=== PATIENT | male | born 1980 | race Caucasian/White ===

== ENCOUNTER 2020-11-23 03:10 | Emergency (ER) | payer OTHER ==
[~2020-11-23] VITALS: Ht 175.3 cm; Wt 73.0 kg
--- NOTE | 2020-11-23 03:10 | NUR ---
PT YUKI BLS. TAKEN TO BED 8
[2020-11-23 03:11] VITALS: BP 111/75
--- NOTE | 2020-11-23 03:11 | NUR ---
40 YR OLD MALE BIBA FOR CC OF GENERALIZED WEAKNESS. PT IS AOX4. PT STATES GENERALIZED WEAKNESS X3DAYS. PT STATES STOPPED USING METH 3 DAYS AGO AND STATES GENERALIZED WEAKNESS STARTED AFTER. PT DENIES OTHER DRUG USE. PT STATES "PASSING OUT AND WAKING UP ON BATHROOM FLOOR". PT HAS NO SIGNS OF TRAUMA. PT DENIES OTHER MEDICAL COMPLAINTS. BED LOCKED IN LOWEST POSITION WITH 2 SIDE RAILS UP FOR SAFETY. HISTORY- NONE ALLERGIES- NONE
--- NOTE | 2020-11-23 03:26 | NUR ---
Dr. Hope examining patient.
[2020-11-23] MEDS ORDERED: NACL 0.9% 1,000 ML IV ONE (03:30)
--- NOTE | 2020-11-23 03:50 | NUR ---
PT WAS PROVIDED CRACKERS AND CARNBERRY JUICE. Addendum: 11/23/20 at 0354 by MEDOE PT WAS PROVIDED CRACKERS AND CRANBERRY JUICE.
--- NOTE | 2020-11-23 04:50 | NUR ---
PT FOUND ASLEEP IN SEMI-MAYS'S POSITION IN BED. PT HAS VISIBLE EQUAL RISE AND FALL UPON RESPIRATION. NO DISTRESS NOTED. BED LOCKED IN LOWEST POSITION WITH 2 SIDE RAILS UP FOR SAFETY.
[2020-11-23 05:12] VITALS: BP 109/69
--- NOTE | 2020-11-23 05:12 | NUR ---
Patient discharged with v/s stable. Written and verbal after care instructions given and explained. Patient verbalized understanding. Ambulatory with steady gait. All questions addressed prior to discharge. Advised to follow up with PMD.
== END 2020-11-23 05:12 | disposition home or self-care (01) ==
LOC: MED 03:10
DX: R53.1 Weakness (principal); R42 Dizziness and giddiness; F17.200 Nicotine dependence, unspecified, uncomplicated; F15.90 Other stimulant use, unspecified, uncomplicated
CPT/HCPCS: 96360; 99283; J7030